=== PATIENT | female | born 1975 | race Caucasian/White ===

== ENCOUNTER 2024-08-30 14:30 | Emergency (ER) | payer OTHER ==
[~2024-08-30] VITALS: Ht 160 cm; Wt 89.4 kg
[2024-08-30 15:07] LABS: *BILIRUBIN,URIN NEGATIVE (NEGATIVE); *BLOOD, URINE NEGATIVE (NEGATIVE); *CLARITY,URINE CLEAR (CLEAR); *COLOR,URINE LIGHT YELLOW (YELLOW); *KETONES,URINE NEGATIVE (NEGATIVE); *PROTEIN,URINE NEGATIVE (NEGATIVE); *UROBILINOGEN,URINE 0.2 E.U./dl (NORMAL); LEUKOCYTE ESTERASE ,URINE NEGATIVE (NEGATIVE); NITRITE, URINE NEGATIVE (NEGATIVE); UGLUCOSE NEGATIVE (NEGATIVE)
[2024-08-30 15:08] LABS: *URINE HCG, QUAL NEGATIVE (NEGATIVE)
[2024-08-30 15:15] LABS: BASOPHILS # (AUTO) 0.1 K/UL (0.0-0.2); EOSINOPHILS # (AUTO) 0.1 K/uL (0.0-0.7); EOSINOPHILS % (AUTO) 1.3 % (0.0-7.0); HEMATOCRIT 37.4 % (31.2-41.9); HEMOGLOBIN 12.5 g/dL (10.9-14.3); LYMPHOCYTES # (AUTO) 2.4 K/uL (0.8-4.8); LYMPHOCYTES % (AUTO) 30.8 % (20.5-51.5); MEAN CORPUSCULAR HEMOGLOBIN 29.4 uug (24.7-32.8); MEAN CORPUSCULAR HGB CONC 34 g/dL (32.3-35.6); MONOCYTES # (AUTO) 0.6 K/uL (0.1-1.30); NEUTROPHILS # (AUTO) 4.7 K/uL (1.8-8.9); NEUTROPHILS % (AUTO) 59.9 % (38.5-71.5); PLATELET COUNT (AUTO) 303 K/uL (179-408); RED BLOOD CELL COUNT(AUTO) 4.25 MIL/uL (3.63-4.92); RED CELL DISTRIBUTION WIDTH 13.2 % (12.3-17.7); WHITE BLOOD COUNT (AUTO) 7.9 K/uL (3.8-11.8)
[2024-08-30 15:17] LABS: DIFFERENTIAL COMMENT 1
[2024-08-30 15:22] LABS: CALCIUM 9.8 mg/dL (8.5-10.1); CARBON DIOXIDE 26 mmol/L (21-32); CHLORIDE 103 mmol/L (98-107); CREATININE 0.9 mg/dL (0.6-1.3); GLUCOSE 72 mg/dL (74-106); POTASSIUM 4.1 mmol/L (3.5-5.1); SODIUM SERUM 141 mmol/L (136-145); UREA NITROGEN, BLOOD 11 mg/dL (7-18)
[2024-08-30] MEDS ORDERED: KETOROLAC TROMETHAMINE 15 MG INJ ONE (15:34)
[2024-08-30 15:37] LABS: ALANINE AMINOTRANSFERASE 18 U/L (14-59); ALBUMIN 3.9 g/dL (3.4-5.0); ALKALINE PHOSPHATASE 61 U/L (50-136); ASPARTATE AMINOTRANSFERASE 13 U/L (15-37); BILIRUBIN,DIRECT 0.1 mg/dL (0.0-0.2); BILIRUBIN,TOTAL 0.2 mg/dL (0.2-1.0); LIPASE 55 U/L (16-77); TOTAL PROTEIN, SERUM 7.7 g/dL (6.4-8.2)
[2024-08-30] MEDS: KETOROLAC TROMETHAMINE 15 MG INJ IVP ONE (15:41)
[2024-08-30 15:46] LABS: PREGNANCY TEST SERUM QUAN < 1 miul/L (0-6)
[2024-08-30] MEDS ORDERED: VITA400C74 PO (16:13)
[2024-08-30] MEDS ORDERED: OMEG1CAP74 PO (16:13)
[2024-08-30] MEDS ORDERED: ASCO500T85 PO (16:13)
[2024-08-30] MEDS ORDERED: CHOL200026 PO (16:13)
[2024-08-30] MEDS ORDERED: METF-440 PO (16:13)
[2024-08-30] MEDS ORDERED: LURA80TA PO (16:13)
[2024-08-30] MEDS ORDERED: FENO160T PO (16:13)
[2024-08-30] MEDS ORDERED: MULT-1045 PO (16:14)
[2024-08-30] MEDS ORDERED: NAPR-1164 PO (17:39)
[2024-08-30] MEDS ORDERED: NAPROXEN 500 MG TABLET ONE (18:00)
[2024-08-30] MEDS ORDERED: TRAM50TA2 PO (18:01)
[2024-08-30] MEDS: NAPROXEN 500 MG TABLET PO ONE (18:02)
[2024-08-30 18:43] VITALS: BP 134/82; TEMP 97.9; O2SAT 96
== END 2024-08-30 18:44 | disposition home or self-care (01) ==
LOC: ER 14:30
DX: M54.9 Dorsalgia, unspecified (principal); R10.9 Unspecified abdominal pain; R11.0 Nausea; E11.9 Type 2 diabetes mellitus without complications; F20.9 Schizophrenia, unspecified; I10 Essential (primary) hypertension; R10.2 Pelvic and perineal pain; Z79.84 Long term (current) use of oral hypoglycemic drugs; Z87.442 Personal history of urinary calculi
CPT/HCPCS: 99285; 74176; 96374; 71045; 80076; 80048; 81003; 84703; 83690; 85025; 85730; 84484 ×2; 84702; 36415; 93005; J1885; A4606; A4663